=== PATIENT | female | born 1985 | race Caucasian/White ===

== ENCOUNTER 2020-07-30 06:50 | Emergency (ER) | payer OTHER, SELFPAY ==
[2020-07-30] VITALS (12 sets, daily range): BP systolic 111–139; BP diastolic 56–82; PULSE 59–79; RESP 16; TEMP 37; O2SAT 96–100; BMI 40.2
--- NOTE | 2020-07-30 | DI.US.S_ITS ---
PROCEDURE: US PELVIC COMPLETE INDICATIONS: RIGHT FLANK PAIN AND LOWER QUADRANT PAIN. ?OVARY VS APPENDIX TECHNIQUE: Real-time scanning was performed of the pelvic organs, with image documentation. Additional endovaginal scanning was necessary due to incomplete visualization of the adnexal and endometrial structures by transabdominal scanning. COMPARISON: [facility], CT, CT ABDOMEN PELVIS W CON, 07/30/2020, 9:23. [facility], US, US RENAL COMPLETE, 07/30/2020, 8:29. [facility], , PELVIC COMPLETE, 08/14/2013, 15:17. FINDINGS: Uterus: Surgically absent. Ovaries: Are within normal limits. Blood flow is seen in both ovaries. No mass or cystic lesion. Less than 12 ovarian follicles bilaterally. Right ovary measures 2.6 x 2.2 x 1.8 cm, volume of 5 cc. Left ovary measures 2.8 x 1.3 x 1.2 cm, volume of 2 cc. Other: No free fluid seen. IMPRESSION: 1. Normal sonographic appearance of the ovaries. No free fluid seen. 2. Post hysterectomy. Dictated by: Asif Osman M.D. on 07/30/2020 at 9:37 Approved by: Asif Osman M.D. on 07/30/2020 at 9:51
[2020-07-30 07:34] LABS: Prothrombin Time 11.8 SECONDS (10.1-12.7)
[2020-07-30 07:37] LABS: PTT Partial Thromboplastin Tim 38 SECONDS (26.4-36.2)
[2020-07-30 07:38] LABS: Add Manual Diff / Slide Review NO; Alanine Aminotransferase 19 IU/L (<35); Albumin 4.4 g/dL (3.5-5.0); Albumin Globulin Ratio 1.2 (1.0-2.8); Alkaline Phosphatase 81 U/L (38-126); Aspartate Aminotransferase 25 IU/L (14-36); BUN Creatinine Ratio 21.5 (6-22); Basophils Absolute Auto 100 /uL (0-100); Basophils Percent Auto 0.7 % (0-2); Bilirubin Total 0.5 mg/dL (0.2-1.3); Blood Urea Nitrogen 14 mg/dL (7-17); Calcium 9.3 mg/dL (8.4-10.2); Carbon Dioxide 27 mmol/L (22-32); Chloride 105 mmol/L (98-107); Eosinophils Absolute Auto 200 /uL (0-450); Eosinophils Percent Auto 3.1 % (2-4); Estimated Glomerular Filt Rate > 60.0 mL/min (>60); Globulin 3.6 g/dL (1.7-4.1); Glucose 120 mg/dL (70-100); HEMOLYSIS < 15 (0-50); Hematocrit 43.8 % (36-46); Hemoglobin 14.3 g/dL (12.0-16.0); Lipase 60 U/L (23-300); Lymphocytes Absolute Auto 1700 /uL (1100-4500); Lymphocytes Percent Auto 22.1 % (25-40); Mean Corpuscular HGB Conc 32.7 % (30-36); Mean Corpuscular Hemoglobin 28.8 PG (26-34); Mean Corpuscular Volume 88.1 fL (80-100); Monocytes Absolute Auto 500 /uL (0-900); Neutrophils Absolute Auto 5300 /uL (1500-7000); Neutrophils Percent Auto 67.1 % (50-75); Platelet Count 332 X10^3/uL (150-400); Potassium 3.7 mmol/L (3.4-5.1); Red Blood Cell Count 4.97 X10^6/uL (4.0-5.2); Red Cell Distribution Width 13.9 % (11.6-14.8); Sodium 137 mmol/L (137-145); White Blood Cell Count 7.8 X10^3/uL (4.5-11.0)
--- NOTE | 2020-07-30 08:03 | ED.ABDPAIN ---
HPI - Abdominal Pain General Chief Complaint: Abdominal Pain Stated Complaint: rt lower abd quad/lower back pain x2 days Time Seen by Provider: 07/30/20 08:02 Source: patient Mode of arrival: Ambulatory Limitations: no limitations History of Present Illness HPI narrative: This is a 34-year-old female comes to the emergency department with complaint of right lower and flank pain. Patient states she has been feeling unwell for the last several days with some chills, muscle aches. Patient denies any objective fevers. Patient states she developed nausea and started vomiting this morning she also developed abdominal pain about 6:00 a.m. in the morning in the right lower quadrant and flank region. Patient states that she had several episodes of diarrhea. She did drive some as mucousy. She denies any melena or hematochezia. She states she did not make it to the bathroom with 1 of them. She has not had any frequency, dysuria or urgency. She denies any vaginal discharge or bleeding. Patient has a history of hysterectomy with removal of cervix and bilateral fallopian tubes after having an ovarian cyst which ruptured and chronic endometriosis issues. She states both ovaries are present. She has also had a cholecystectomy. She also has a history of IBS. She denies any other major medical issues. Patient has allergy to penicillin. She states that with prior ovarian cyst she has not had similar symptoms, she also has not had similar pain with her IBS. She is accompanied by her ?best friend.? Related Data Home Medications Medication Instructions Recorded Confirmed CA/FE/FOLIC ACID/VIT A/VIT B 1 tab PO HS #0 12/23/10 (# VITAMIN) ibuprofen #0 07/21/16 Previous Rx's Medication Instructions Recorded hydrocodone-acetaminophen [[place]] 1 - 2 tab PO Q6H PRN #15 tab 09/10/16 ondansetron [Zofran ODT] 4 mg SUBLINGUAL Q6HP PRN #15 odt 09/10/16 ondansetron HCl [Zofran] 4 mg PO Q6H PRN #10 tab 07/30/20 tramadol [Ultram] 50 mg PO Q6H PRN #7 tab 07/30/20 Allergies Allergy/AdvReac Type Severity Reaction Status Date / Time Penicillins [PENICILLINS] Allergy Mild RASH Verified 07/30/20 07:12 leuprolide [LEUPROLIDE] Allergy Unknown Verified 07/30/20 07:12 Review of Systems Review of Systems ROS Unobtainable: All systems reviewed & are unremarkable except as noted in HPI and below Patient History Surgical History Status post laparoscopic cholecystectomy Status post laparoscopy (08/17/13) Status post laparoscopy Status post laparoscopy Social History Smoking Status: Never smoker Smoking Status: Never smoker alcohol intake frequency: holidays/special occasions only Substance Use Type: does not use Exam Narrative Exam Narrative: GENERAL: Alert and oriented x three, obese, well-appearing female in mild distress. HEENT: Head normocephalic, atraumatic, EOMI, pupils reactive, face symmetric, moist mucous membranes NECK: Supple, full range of motion CARDIOVASCULAR: Regular rate and rhythm without murmurs, rubs or gallops. RESPIRATORY: Breath sounds equal bilaterally, no wheezes rales or rhonchi. ABDOMEN: Soft, mild generalized tenderness, patient has right flank tenderness but less appreciable in the right lower quadrant but present. Normoactive bowel sounds all 4 quadrants. No guarding or rebound, rigidity, no mass : No left CVA tenderness EXTREMITIES: Normal range of motion, no clubbing or edema. Neurovascularly intact NEUROLOGICAL: Cranial nerves II through XII grossly intact. Moving all extremities SKIN: Warm, dry, no petechiae, no rashes or lesions. Initial Vital Signs Initial Vital Signs: Vital Signs Temperature 98.6 F 07/30/20 07:12 Pulse Rate 79 07/30/20 07:12 Respiratory Rate 16 07/30/20 07:12 Blood Pressure 139/82 07/30/20 07:12 Pulse Oximetry 99 07/30/20 07:12 Course Orders Ordered: ED Orders 07/30/20 07:00 Complete Blood Count AUTO DIFF Stat Comprehensive Metabolic Panel Stat Lipase Stat Partial Thromboplastin Time Stat Prothrombin Time INR Stat 07/30/20 08:10 renal complete Stat 07/30/20 09:21 CT abdomen pelvis w con Stat Discontinued Medications Sodium Chloride (Normal Saline 0.9%) 1,000 mls @ 1,000 mls/hr IV BOLUS ONE Stop: 07/30/20 09:09 Last Infusion: 07/30/20 11:02 Dose: 0 mls/hr Documented by: Admin: 07/30/20 08:24 Dose: 1,000 mls/hr Documented by: PAWEL Ketorolac Tromethamine (Ketorolac 60 Mg/2 Ml Vial) 15 mg IV NOW ONE Stop: 07/30/20 08:11 Last Admin: 07/30/20 08:24 Dose: 15 mg Documented by: PAWEL Morphine Sulfate (Morphine 4 Mg/Ml Inj) 4 mg IV NOW ONE Stop: 07/30/20 09:21 Last Admin: 07/30/20 09:25 Dose: 4 mg Documented by: PAWEL Ondansetron HCl (Ondansetron 4 Mg/2 Ml Inj) 4 mg IV NOW ONE Stop: 07/30/20 08:11 Last Admin: 07/30/20 08:24 Dose: 4 mg Documented by: PAWEL Reevaluation(s) Reevaluation #1: Patient prelim ultrasound they were unable to visualize appendix kidney appeared normal as well as normal right ovary. Patient did have significantly increased pain afterwards. She did improve with Toradol initially but after palpation with ultrasound she has much more uncomfortable. Plan to give morphine. We discussed watchful waiting versus imaging. I would recommend imaging at this time as she is quite tender with worsening symptoms even after pain medication and no other clear cause for her discomfort although patient's labs and vitals are reassuring. Patient is agreeable. Time: 09:25 Reevaluation #2: On recheck patient is more comfortable. Patient's CT does not show any signs of appendicitis are clear cause for her pain. We reviewed potential causes. Plan for watchful waiting Zofran and Ultram for pain and nausea and patient is to return if worsening symptoms. We did discuss there is potential for very early appendicitis although she does not have any inflammatory changes at this time. Patient is comfortable with this plan. Also left a face sheet for social work as she has a primary care but they do not currently take her State insurance and she would appreciate some assistance finding a provider. Time: 10:49 Vital Signs Vital signs: Vital Signs - 8 hr 07/30/20 07:12 07/30/20 07:16 07/30/20 07:30 Temperature 98.6 F Pulse Rate 79 73 69 Respiratory Rate 16 Blood Pressure 139/82 Pulse Oximetry 99 100 98 07/30/20 08:00 07/30/20 08:30 07/30/20 09:09 Temperature Pulse Rate 68 62 68 Respiratory Rate Blood Pressure 111/56 L Pulse Oximetry 96 99 98 07/30/20 09:10 07/30/20 09:36 07/30/20 10:00 Temperature Pulse Rate 71 73 65 Respiratory Rate Blood Pressure 111/59 L 114/70 Pulse Oximetry 98 96 98 07/30/20 10:30 07/30/20 10:59 07/30/20 11:00 Temperature Pulse Rate 63 59 L 66 Respiratory Rate Blood Pressure 113/62 Pulse Oximetry 98 97 97 MDM - Abdominal Pain Lab Data Attestation: I reviewed the patient's lab results. Result diagrams: 07/30/20 07:00 07/30/20 07:00 Labs: Lab Results 07/30/20 07/30/20 07/30/20 Range/Units 07:00 07:00 07:00 WBC 7.8 (4.5-11.0) X10^3/uL RBC 4.97 (4.0-5.2) X10^6/uL Hgb 14.3 (12.0-16.0) g/dL Hct 43.8 (36-46) % MCV 88.1 (80-100) fL MCH 28.8 (26-34) PG MCHC 32.7 (30-36) % RDW 13.9 (11.6-14.8) % Plt Count 332 (150-400) X10^3/uL Neut % (Auto) 67.1 (50-75) % Lymph % (Auto) 22.1 L (25-40) % Story % (Auto) 7.0 (3-14) % Eos % (Auto) 3.1 (2-4) % Baso % (Auto) 0.7 (0-2) % Neut # (Auto) 5300 (6667-9966) /uL Lymph # (Auto) 1700 (8762-1333) /uL Story # (Auto) 500 (0-900) /uL Eos # (Auto) 200 (0-450) /uL Baso # (Auto) 100 (0-100) /uL PT 11.8 (10.1-12.7) SECONDS INR 1.0 (0.9-1.3) APTT 38 H (26.4-36.2) SECONDS Sodium 137 (137-145) mmol/L Potassium 3.7 (3.4-5.1) mmol/L Chloride 105 (98-107) mmol/L Carbon Dioxide 27 (22-32) mmol/L BUN 14 (7-17) mg/dL Creatinine 0.65 (0.52-1.04) mg/dL Estimated GFR > 60.0 (>60) mL/min BUN/Creatinine Ratio 21.5 (6-22) Glucose 120 H (70-100) mg/dL Calcium 9.3 (8.4-10.2) mg/dL Total Bilirubin 0.5 (0.2-1.3) mg/dL AST 25 (14-36) IU/L ALT 19 (<35) IU/L Alkaline Phosphatase 81 (38-126) U/L Total Protein 8.0 (6.3-8.2) g/dL Albumin 4.4 (3.5-5.0) g/dL Globulin 3.6 (1.7-4.1) g/dL Albumin/Globulin Ratio 1.2 (1.0-2.8) Lipase 60 (23-300) U/L Point of care testing: Point of Care Testing Test Results Negative Urine Dip Bedside Urine Glucose Negative Bedside Urine Bilirubin - Negative Bedside Urine Ketone - Negative Urine Specific [place] 1.020 Bedside Urine Occult Blood - Negative Bedside Urine pH 6 Bedside Urine Protein - Negative Bedside Urine Urobilinogen - Negative Bedside Urine Nitrite - Negative Bedside Urine Leukocytes - Negative Esterase Imaging Data CT scan - abdomen/pelvis: Radiologist's Impression: [address] [id number] Scan ReportSigned Patient: Elma Ko JMR#: [id number]: 1985Acct:[id number]/Sex: 34 / FDate of Service: 07/30/20Loc: EDAccession Number: [id number] Procedure: CT abdomen pelvis w con Ordering Provider: Ana Lu D.O. PROCEDURE: CT ABDOMEN PELVIS W CON INDICATIONS: RLQ/flank pain, ? appy TECHNIQUE: After the administration of intravenous contrast, 5 mm thick sections acquired from the diaphragm to the symphysis. 5 mm coronal and sagittal reformats were acquired. For radiation dose reduction, the following was used: automated exposure control, adjustment of mA and/or kV according to patient size. COMPARISON: [facility], CT, ABDOMEN/PELVIS WITH CONTRAST, 09/08/2016, 10:53. FINDINGS: Image quality: Excellent. ABDOMEN: Lung bases: There is minimal dependent atelectasis. Heart size is normal. Solid organs: There is mild focal fatty infiltration in the anterior left hepatic lobe along the falciform ligament. The gallbladder appears within normal limits without calcified gallstones. Biliary system is non-dilated. Pancreas enhances normally. No peripancreatic fat stranding or fluid collections. No pancreatic duct dilatation. The spleen is normal in size. No adrenal nodules. Kidneys demonstrate no hydronephrosis. Peritoneum and bowel: Bowel loops demonstrate normal wall thickness and caliber. The appendix is normal in appearance. There is colonic diverticulosis without acute diverticulitis. No free fluid or air. Nodes and vessels: No retroperitoneal or mesenteric adenopathy by size criteria. Aorta and inferior vena cava are normal in size. Miscellaneous: No ventral hernias. PELVIS: Genitourinary: Bladder wall thickness is normal. The uterus is surgically absent. Ovaries appear within normal size limits. Miscellaneous: No inguinal hernias or adenopathy. Bones: No suspicious bony lesions. No vertebral body compression fractures. IMPRESSION: 1. No definite acute intra-abdominal abnormality. Specifically, no evidence of acute appendicitis or obstructive uropathy. Dictated by: Srikanth Gan M.D. on 07/30/2020 at 9:48 Approved by: Srikanth Gan M.D. on 07/30/2020 at 9:51 US - abdomen: Radiologist's Impression: [address] [id number] ReportSigned Patient: Elma Ko JMR#: [id number]: 1985Acct:[id number]/Sex: 34 / FDate of Service: 07/30/20Loc: EDAccession Number: [id number] Procedure: US pelvic complete Ordering Provider: Ana Lu D.O. PROCEDURE: US PELVIC COMPLETE INDICATIONS: RIGHT FLANK PAIN AND LOWER QUADRANT PAIN. ?OVARY VS APPENDIX TECHNIQUE: Real-time scanning was performed of the pelvic organs, with image documentation. Additional endovaginal scanning was necessary due to incomplete visualization of the adnexal and endometrial structures by transabdominal scanning. COMPARISON: [facility], CT, CT ABDOMEN PELVIS W CON, 07/30/2020, 9:23. [facility], , US RENAL COMPLETE, 07/30/2020, 8:29. [facility] US, PELVIC COMPLETE, 08/14/2013, 15:17. FINDINGS: Uterus: Surgically absent. Ovaries: Are within normal limits. Blood flow is seen in both ovaries. No mass or cystic lesion. Less than 12 ovarian follicles bilaterally. Right ovary measures 2.6 x 2.2 x 1.8 cm, volume of 5 cc. Left ovary measures 2.8 x 1.3 x 1.2 cm, volume of 2 cc. Other: No free fluid seen. IMPRESSION: 1. Normal sonographic appearance of the ovaries. No free fluid seen. 2. Post hysterectomy. Dictated by: Asif Osman M.D. on 07/30/2020 at 9:37 Approved by: Asif Osman M.D. on 07/30/2020 at 9:51 renal US: Radiologist's Impression: [address] [id number] ReportSigned Patient: Elma Ko JMR#: [id number]: 1985Acct:[id number]/Sex: 34 / FDate of Service: 07/30/20Loc: EDAccession Number: [id number] Procedure: US renal complete Ordering Provider: Ana Lu D.O. PROCEDURE: US RENAL COMPLETE INDICATIONS: RIGHT ABDOMEN/FLANK PAIN ?APPENDIX, STONE, OVARIAN CYST TECHNIQUE: Real-time scanning was performed of the kidneys and bladder, with image documentation. COMPARISON: [facility], US, US PELVIC COMPLETE, 07/30/2020, 8:37. [facility], CT, ABDOMEN/PELVIS WITH CONTRAST, 09/08/2016, 10:53. FINDINGS: Kidneys: Kidneys are normal in size. Right kidney measures 11 cm long; left kidney measures 11.3 cm long. Right renal cortical thickness is 1.4 cm; left renal cortical thickness is 2 cm. Renal cortical echotexture is normal. No hydronephrosis or nephrolithiasis. No suspicious solid mass lesions. Bladder: Pre-void bladder volume is 367 mL. Post-void residual is 0 mL. Pre-void images demonstrate no intraluminal masses or stones. On pre-void images, both ureteral jets are noted with color Doppler interrogation. (Of note, ureteral jets may not be detectable in up to 25% of cases due to insufficient differences in specific gravity between ureteral and bladder urine). Miscellaneous: No free pelvic fluid. No abnormality identified in the right lower quadrant. The appendix is not seen. No echogenic fat seen. IMPRESSION: 1. No hydronephrosis. 2. No abnormality identified in the right lower quadrant. The appendix is not identified. If clinically indicated consider further evaluation with CT abdomen and pelvis with IV contrast. Dictated by: Asif Osman M.D. on 07/30/2020 at 9:35 Approved by: Asif Osman M.D. on 07/30/2020 at 9:37 MDM Narrative Medical decision making narrative: 34-year-old female comes with complaint of abdominal pain with negative labs, test and point of care urinalysis. Renal ultrasound does not show obvious source of pain. Discussed with patient abdomen imaging was obtained no acute findings to describe her symptoms today. Appendix is visualized and does not appear to be infected. No renal obstructive changes. There is some mild fatty infiltrate in the left hepatic lobe which is not likely cause of her right lower quadrant pain. Discussed with patient may be related to her IBS history, possibility of endometriosis but less likely with vomiting and diarrhea. Possibility of very early appendicitis but with no acute changes, reassuring labs at this time would plan for watchful waiting and strict return precautions. Patient is aware of the fatty infiltrate need for follow-up. Discharge Plan Departure Patient Disposition: Home Clinical Impression: Abdominal pain Instructions: DI for Abdominal Pain-Adult Activity Restrictions/Additional Instructions: Follow-up with your physician this week for recheck if your symptoms are not resolving. There is no clear cause found with your labs or imaging today for abdominal pain, it may be related to your IBS. He continued to have persistent or frequent symptoms you may need colonoscopy in the future for further evaluation. There is also possibility that endometriosis may be related and this would not be seen on your imaging. May take pain medication 1 to 2 tablet every 6 hours as needed for pain. This medication can make you sleepy do not drive, perform hazardous activities or make any major decisions while taking it. It can cause constipation so make sure to take stool softener if you are having any hard stools or difficulty with bowel movements. You may take Zofran 1 tab every 6 hours as needed for nausea. Return to the ER for fevers greater 100.4 F, rapidly worsening back, abdominal or flank pain. Persistent vomiting, black or bloody stools, inability to urinate, lightheadedness or passing out, new chest pain or shortness of breath or other new or concerning symptoms. Prescriptions: New ondansetron HCl [Zofran] 4 mg tablet 4 mg PO Q6H PRN (Reason: nausea and vomiting) Qty: 10 RF: 0 tramadol [Ultram] 50 mg tablet 50 mg PO Q6H PRN (Reason: pain) Qty: 7 RF: 0 No Action CA/FE/FOLIC ACID/VIT A/VIT B (# VITAMIN) 1 tab PO HS Qty: 0 RF: 0 ibuprofen 200 MG tablet Qty: 0 RF: 0 hydrocodone-acetaminophen [[place]] 5 MG/325 MG tablet 1 - 2 tab PO Q6H PRNQty: 15 RF: 0 ondansetron [Zofran ODT] 4 MG tablet,disintegrating 4 mg Sublingual Q6HP PRNQty: 15 RF: 0
--- NOTE | 2020-07-30 08:10 | DI.US.S_ITS ---
PROCEDURE: US RENAL COMPLETE INDICATIONS: RIGHT ABDOMEN/FLANK PAIN ?APPENDIX, STONE, OVARIAN CYST TECHNIQUE: Real-time scanning was performed of the kidneys and bladder, with image documentation. COMPARISON: [facility], US, US PELVIC COMPLETE, 07/30/2020, 8:37. [facility], CT, ABDOMEN/PELVIS WITH CONTRAST, 09/08/2016, 10:53. FINDINGS: Kidneys: Kidneys are normal in size. Right kidney measures 11 cm long; left kidney measures 11.3 cm long. Right renal cortical thickness is 1.4 cm; left renal cortical thickness is 2 cm. Renal cortical echotexture is normal. No hydronephrosis or nephrolithiasis. No suspicious solid mass lesions. Bladder: Pre-void bladder volume is 367 mL. Post-void residual is 0 mL. Pre-void images demonstrate no intraluminal masses or stones. On pre-void images, both ureteral jets are noted with color Doppler interrogation. (Of note, ureteral jets may not be detectable in up to 25% of cases due to insufficient differences in specific gravity between ureteral and bladder urine). Miscellaneous: No free pelvic fluid. No abnormality identified in the right lower quadrant. The appendix is not seen. No echogenic fat seen. IMPRESSION: 1. No hydronephrosis. 2. No abnormality identified in the right lower quadrant. The appendix is not identified. If clinically indicated consider further evaluation with CT abdomen and pelvis with IV contrast. Dictated by: Asif Osman M.D. on 07/30/2020 at 9:35 Approved by: Asif Osman M.D. on 07/30/2020 at 9:37
[2020-07-30] MEDS: KETOROLAC 60 MG/2 ML VIAL 15 MG IV (08:24)
[2020-07-30] MEDS: ONDANSETRON 4 MG/2 ML INJ IV (08:24)
[2020-07-30] MEDS: SODIUM CHLORIDE 0.9% 1,000 ML 1000 ML IV (08:24)
--- NOTE | 2020-07-30 09:21 | DI.CT.S_ITS ---
PROCEDURE: CT ABDOMEN PELVIS W CON INDICATIONS: RLQ/flank pain, ? appy TECHNIQUE: After the administration of intravenous contrast, 5 mm thick sections acquired from the diaphragm to the symphysis. 5 mm coronal and sagittal reformats were acquired. For radiation dose reduction, the following was used: automated exposure control, adjustment of mA and/or kV according to patient size. COMPARISON: [facility], CT, ABDOMEN/PELVIS WITH CONTRAST, 09/08/2016, 10:53. FINDINGS: Image quality: Excellent. ABDOMEN: Lung bases: There is minimal dependent atelectasis. Heart size is normal. Solid organs: There is mild focal fatty infiltration in the anterior left hepatic lobe along the falciform ligament. The gallbladder appears within normal limits without calcified gallstones. Biliary system is non-dilated. Pancreas enhances normally. No peripancreatic fat stranding or fluid collections. No pancreatic duct dilatation. The spleen is normal in size. No adrenal nodules. Kidneys demonstrate no hydronephrosis. Peritoneum and bowel: Bowel loops demonstrate normal wall thickness and caliber. The appendix is normal in appearance. There is colonic diverticulosis without acute diverticulitis. No free fluid or air. Nodes and vessels: No retroperitoneal or mesenteric adenopathy by size criteria. Aorta and inferior vena cava are normal in size. Miscellaneous: No ventral hernias. PELVIS: Genitourinary: Bladder wall thickness is normal. The uterus is surgically absent. Ovaries appear within normal size limits. Miscellaneous: No inguinal hernias or adenopathy. Bones: No suspicious bony lesions. No vertebral body compression fractures. IMPRESSION: 1. No definite acute intra-abdominal abnormality. Specifically, no evidence of acute appendicitis or obstructive uropathy. Dictated by: Srikanth Gan M.D. on 07/30/2020 at 9:48 Approved by: Srikanth Gan M.D. on 07/30/2020 at 9:51
[2020-07-30] MEDS: MORPHINE 4 MG/ML INJ IV (09:25)
== END 2020-07-30 11:06 | disposition home or self-care (01) ==
PROVIDERS: Emergency Provider Emergency Medicine; Family Provider Family Medicine
DX: R10.31 Right lower quadrant pain (principal); R11.2 Nausea with vomiting, unspecified; R19.7 Diarrhea, unspecified; E66.9 Obesity, unspecified; Z68.41 Body mass index [BMI] 40.0-44.9, adult
CPT/HCPCS: 36415; 74177; 76770; 76830; 76856; 80053; 81003; 81025; 83690; 85025; 85610; 85730; 96361; 96374; 96375; 99284; J1885; J2270; J2405; Q9967

== ENCOUNTER 2020-11-07 06:19 | Emergency (ER) | payer OTHER, MEDICAID, SELFPAY ==
[2020-11-07] VITALS (7 sets, daily range): BP systolic 112–127; BP diastolic 63–81; PULSE 60–72; RESP 17–29; TEMP 36.6–36.7; O2SAT 96–100
[2020-11-07 06:43] LABS: Add Manual Diff / Slide Review NO; Basophils Absolute Auto 0 /uL (0-100); Basophils Percent Auto 0.6 % (0-2); Eosinophils Absolute Auto 200 /uL (0-450); Eosinophils Percent Auto 3.2 % (2-4); Lymphocytes Absolute Auto 1600 /uL (1100-4500); Lymphocytes Percent Auto 20.3 % (25-40); Mean Corpuscular HGB Conc 33.4 % (30-36); Mean Corpuscular Hemoglobin 29.3 PG (26-34); Mean Corpuscular Volume 87.8 fL (80-100); Monocytes Absolute Auto 600 /uL (0-900); Neutrophils Absolute Auto 5400 /uL (1500-7000); Neutrophils Percent Auto 68.9 % (50-75); Platelet Count 368 X10^3/uL (150-400); Red Blood Cell Count 4.79 X10^6/uL (4.0-5.2); Red Cell Distribution Width 13.4 % (11.6-14.8); White Blood Cell Count 7.9 X10^3/uL (4.5-11.0)
--- NOTE | 2020-11-07 06:47 | ED_ITS ---
HPI - General Adult <Ion Mckeon DO - Last Filed: 11/08/20 15:05> General Chief complaint: Syncope Stated complaint: Passed out, really dizzy Time Seen by Provider: 11/07/20 06:22 Source: patient and family Mode of arrival: Wheelchair Limitations: no limitations History of Present Illness HPI narrative: Patient is a 35-year-old female. History of bipolar disorder and also migraines who has had a headache for the past week. 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 When she came out from the patient's room she did not feel very well. She thought her headache was starting to get worse. She took an aspirin and Tylenol which did not help. She felt very sick and had some vision changes. She felt like her heart was beating fast. She had to sit down because of how she was feeling. She states she was on the phone with family when she states she did completely pass out. Apparently she did not fall out of the chair. She states that she thinks she was only out for a couple seconds and then return to normal very quickly afterwards. Here in the emergency department she states she feels very weak in her legs. The headache that she currently has is the 1 that she has been having for the past week and is consistent with her prior migraines. Related Data Home Medications Medication Instructions Recorded Confirmed CA/FE/FOLIC ACID/VIT A/VIT B 1 tab PO HS #0 12/23/10 10/20/20 (# VITAMIN) ibuprofen #0 07/21/16 10/20/20 bupropion HCl 150 mg 24 hr tablet, 150 mg PO QAM 10/20/20 10/20/20 extended release lamotrigine 25 mg tablet 25 mg PO ONCE 10/20/20 10/20/20 Previous Rx's Medication Instructions Recorded hydroxyzine HCl 25 mg tablet 25 mg PO TID PRN #20 tab 10/20/20 Allergies Allergy/AdvReac Type Severity Reaction Status Date / Time Penicillins [PENICILLINS] Allergy Mild RASH Verified 10/20/20 08:29 leuprolide [LEUPROLIDE] Allergy Unknown Verified 10/20/20 08:29 Review of Systems <Ion Mckeon DO - Last Filed: 11/08/20 15:05> Constitutional Constitutional: Denies chills, Reports fatigue, Denies fever(s), Reports headache(s) and Reports weakness Eyes Eyes: Reports blurry vision (This has resolved) ENT Ears, Nose, Mouth, and Throat: Denies vertigo, Reports dizziness, Reports headache(s), Reports disequilibrium and Denies sore throat Cardiovascular Cardiovascular: Denies chest pain, Reports syncope, Reports rapid heart rate (This has resolved) and Denies dyspnea Respiratory Respiratory: Denies dyspnea Gastrointestinal Gastrointestinal: Denies nausea and Denies vomiting Musculoskeletal Musculoskeletal: Reports system reviewed and no additional complaints, except as documented Integumentary/Breasts Skin/Breast: Reports system reviewed and no additional complaints, except as documented Neurologic Neurologic: Denies vertigo, Reports dizziness, Reports syncope, Reports head ache(s), Reports disequilibrium and Reports weakness Endocrine Endocrine: Reports system reviewed and no additional complaints, except as documented and Reports fatigue Hematologic/Lymphatic On Anticoagulants: No Allergic/Immunologic Allergic/Immunologic: Reports system reviewed and no additional complaints, except as documented Patient History <Ion Mckeon DO - Last Filed: 11/08/20 15:05> Medical History Bipolar disorder Migraine Surgical History Status post laparoscopic cholecystectomy Status post laparoscopy (08/17/13) Status post laparoscopy Status post laparoscopy Social History Smoking Status: Never smoker Smoking Status: Never smoker alcohol intake frequency: holidays/special occasions only Substance Use Type: marijuana Exam <Ion Mckeon DO - Last Filed: 11/08/20 15:05> Initial Vital Signs Initial Vital Signs: Vital Signs Temperature 98.0 F 11/07/20 06:34 Pulse Rate 71 11/07/20 06:34 Respiratory Rate 20 11/07/20 06:34 Blood Pressure 127/81 11/07/20 06:34 Pulse Oximetry 100 11/07/20 06:34 Const General: cooperative, comfortable and well developed Limitations: mental status not altered [facility] Head: normal to inspection and normocephalic Eyes General: appearance normal, both eyes and all related structures Resp Effort & Inspection: normal respiratory effort Auscultation: clear to auscultation bilaterally Cardio Rate: regular rate Rhythm: regular rhythm GI Inspection: non-distended Palpation: soft and No firm Skin Lesions: no lesions Rashes: no rashes Neuro General: patient alert, patient awake and patient oriented x3 Cranial Nerves: CN's II-XI intact bilaterally Cognition: normal cognition Speech: speech normal Gait: normal gait Motor: muscle tone normal throughout Extrem General: normal to inspection and capillary refill normal Psych Appearance: grossly normal and well kempt <Josee Mallory DO - Last Filed: 11/07/20 10:32> Initial Vital Signs Initial Vital Signs: Vital Signs Temperature 98.0 F 11/07/20 06:34 Pulse Rate 71 11/07/20 06:34 Respiratory Rate 20 11/07/20 06:34 Blood Pressure 127/81 11/07/20 06:34 Pulse Oximetry 100 11/07/20 06:34 Scores <Ion Mckeon DO - Last Filed: 11/08/20 15:05> GCS Ramos coma scale eye opening: Spontaneous Ramos coma scale verbal response: Orientated [place] coma scale motor response: Obey commands [place] coma scale total score: 15 Course <Ion Mckeon DO - Last Filed: 11/08/20 15:05> Orders Ordered: Discontinued Medications Diphenhydramine HCl (Diphenhydramine 50 Mg/Ml Vial) 25 mg IV NOW ONE Stop: 11/07/20 06:48 Last Admin: 11/07/20 06:58 Dose: 25 mg Documented by: SHANIA Sodium Chloride (Normal Saline 0.9%) 1,000 mls @ 1,000 mls/hr IV BOLUS ONE Stop: 11/07/20 07:32 Last Infusion: 11/07/20 08:53 Dose: 0 mls/hr Documented by: Admin: 11/07/20 06:58 Dose: 1,000 mls/hr Documented by: SHANIA Metoclopramide HCl (Metoclopramide 10 Mg/2 Ml Inj) 10 mg IV NOW ONE Stop: 11/07/20 06:48 Last Admin: 11/07/20 06:58 Dose: 10 mg Documented by: SHANIA Vital Signs Vital signs: Vital Signs - 8 hr 11/07/20 06:34 11/07/20 06:49 11/07/20 07:00 Temperature 98.0 F Pulse Rate 71 71 68 Respiratory Rate 20 Blood Pressure 127/81 126/65 Pulse Oximetry 100 96 99 11/07/20 07:30 11/07/20 07:41 11/07/20 08:00 Temperature Pulse Rate 72 65 60 Respiratory Rate 17 27 H 29 H Blood Pressure 112/63 126/65 Pulse Oximetry 99 98 98 11/07/20 08:30 Temperature 97.8 F Pulse Rate 72 Respiratory Rate 18 Blood Pressure 114/78 Pulse Oximetry 98 <Josee Mallory DO - Last Filed: 11/07/20 10:32> Orders Ordered: Discontinued Medications Diphenhydramine HCl (Diphenhydramine 50 Mg/Ml Vial) 25 mg IV NOW ONE Stop: 11/07/20 06:48 Last Admin: 11/07/20 06:58 Dose: 25 mg Documented by: SHANIA Sodium Chloride (Normal Saline 0.9%) 1,000 mls @ 1,000 mls/hr IV BOLUS ONE Stop: 11/07/20 07:32 Last Infusion: 11/07/20 08:53 Dose: 0 mls/hr Documented by: Admin: 11/07/20 06:58 Dose: 1,000 mls/hr Documented by: SHANIA Metoclopramide HCl (Metoclopramide 10 Mg/2 Ml Inj) 10 mg IV NOW ONE Stop: 11/07/20 06:48 Last Admin: 11/07/20 06:58 Dose: 10 mg Documented by: SHANIA Vital Signs Vital signs: Vital Signs - 8 hr 11/07/20 06:34 11/07/20 06:49 11/07/20 07:00 Temperature 98.0 F Pulse Rate 71 71 68 Respiratory Rate 20 Blood Pressure 127/81 126/65 Pulse Oximetry 100 96 99 11/07/20 07:30 11/07/20 07:41 11/07/20 08:00 Temperature Pulse Rate 72 65 60 Respiratory Rate 17 27 H 29 H Blood Pressure 112/63 126/65 Pulse Oximetry 99 98 98 11/07/20 08:30 Temperature 97.8 F Pulse Rate 72 Respiratory Rate 18 Blood Pressure 114/78 Pulse Oximetry 98 Medical Decision Making <Ion Mckeon DO - Last Filed: 11/08/20 15:05> Lab Data Lab results reviewed: Yes I reviewed the patient's lab results. Result diagrams: 11/07/20 06:30 11/07/20 06:30 Labs: Lab Results 11/07/20 11/07/20 Range/Units 06:30 06:30 WBC 7.9 (4.5-11.0) X10^3/uL RBC 4.79 (4.0-5.2) X10^6/uL Hgb 14.0 (12.0-16.0) g/dL Hct 42.0 (36-46) % MCV 87.8 (80-100) fL MCH 29.3 (26-34) PG MCHC 33.4 (30-36) % RDW 13.4 (11.6-14.8) % Plt Count 368 (150-400) X10^3/uL Neut % (Auto) 68.9 (50-75) % Lymph % (Auto) 20.3 L (25-40) % Routt % (Auto) 7.0 (3-14) % Eos % (Auto) 3.2 (2-4) % Baso % (Auto) 0.6 (0-2) % Neut # (Auto) 5400 (8053-8834) /uL Lymph # (Auto) 1600 (4250-3573) /uL Routt # (Auto) 600 (0-900) /uL Eos # (Auto) 200 (0-450) /uL Baso # (Auto) 0 (0-100) /uL Sodium 138 (137-145) mmol/L Potassium 3.8 (3.4-5.1) mmol/L Chloride 103 (98-107) mmol/L Carbon Dioxide 24 (22-32) mmol/L BUN 17 (7-17) mg/dL Creatinine 0.71 (0.52-1.04) mg/dL Estimated GFR > 60.0 (>60) mL/min BUN/Creatinine Ratio 23.9 H (6-22) Glucose 110 H (70-100) mg/dL Calcium 10.0 (8.4-10.2) mg/dL Point of Care Testing Test Results Negative Urine Dip Bedside Urine Glucose Negative Bedside Urine Bilirubin - Negative Bedside Urine Ketone - Negative Urine Specific [place] 1.030 Bedside Urine Occult Blood - Negative Bedside Urine pH 6.0 Bedside Urine Protein - Negative Bedside Urine Urobilinogen - Negative Bedside Urine Nitrite - Negative Bedside Urine Leukocytes - Negative Esterase Point of care testing: Point of Care Testing Test Results Negative Urine Dip Bedside Urine Glucose Negative Bedside Urine Bilirubin - Negative Bedside Urine Ketone - Negative Urine Specific [place] 1.030 Bedside Urine Occult Blood - Negative Bedside Urine pH 6.0 Bedside Urine Protein - Negative Bedside Urine Urobilinogen - Negative Bedside Urine Nitrite - Negative Bedside Urine Leukocytes - Negative Esterase ECG Data Attestation: I personally reviewed and interpreted this ECG as follows: Prior ECG tracings: not available for review Interpretation: Sinus rhythm Ventricular rate is 67 Normal axis Normal QRS Normal QTC Nonspecific ST T wave changes MDM Narrative Medical decision making narrative: Patient did appear to have a syncopal episode earlier today. She is also having headache which she states is 1 of her typical migraines. She states she would like treatment for her headache because of the discomfort. EKG is unremarkable. Labs are pending. Head CT is pending. Care turned over to Dr. Mallory a change of shift to follow up on labs and head CT. <Josee Mallory, - Last Filed: 11/07/20 10:32> Lab Data Labs: Lab Results 11/07/20 11/07/20 Range/Units 06:30 06:30 WBC 7.9 (4.5-11.0) X10^3/uL RBC 4.79 (4.0-5.2) X10^6/uL Hgb 14.0 (12.0-16.0) g/dL Hct 42.0 (36-46) % MCV 87.8 (80-100) fL MCH 29.3 (26-34) PG MCHC 33.4 (30-36) % RDW 13.4 (11.6-14.8) % Plt Count 368 (150-400) X10^3/uL Neut % (Auto) 68.9 (50-75) % Lymph % (Auto) 20.3 L (25-40) % Rout[place] % (Auto) 7.0 (3-14) % Eos % (Auto) 3.2 (2-4) % Baso % (Auto) 0.6 (0-2) % Neut # (Auto) 5400 (9971-3493) /uL Lymph # (Auto) 1600 (8470-0010) /uL [place] # (Auto) 600 (0-900) /uL Eos # (Auto) 200 (0-450) /uL Baso # (Auto) 0 (0-100) /uL Sodium 138 (137-145) mmol/L Potassium 3.8 (3.4-5.1) mmol/L Chloride 103 (98-107) mmol/L Carbon Dioxide 24 (22-32) mmol/L BUN 17 (7-17) mg/dL Creatinine 0.71 (0.52-1.04) mg/dL Estimated GFR > 60.0 (>60) mL/min BUN/Creatinine Ratio 23.9 H (6-22) Glucose 110 H (70-100) mg/dL Calcium 10.0 (8.4-10.2) mg/dL Point of Care Testing Test Results Negative Urine Dip Bedside Urine Glucose Negative Bedside Urine Bilirubin - Negative Bedside Urine Ketone - Negative Urine Specific [place] 1.030 Bedside Urine Occult Blood - Negative Bedside Urine pH 6.0 Bedside Urine Protein - Negative Bedside Urine Urobilinogen - Negative Bedside Urine Nitrite - Negative Bedside Urine Leukocytes - Negative Esterase Point of care testing: Point of Care Testing Test Results Negative Urine Dip Bedside Urine Glucose Negative Bedside Urine Bilirubin - Negative Bedside Urine Ketone - Negative Urine Specific [place] 1.030 Bedside Urine Occult Blood - Negative Bedside Urine pH 6.0 Bedside Urine Protein - Negative Bedside Urine Urobilinogen - Negative Bedside Urine Nitrite - Negative Bedside Urine Leukocytes - Negative Esterase Imaging Data CT scan - head: Radiologist's Impression: PROCEDURE: CT HEAD/BRAIN WO CON INDICATIONS: Passed out with headache TECHNIQUE: Noncontrast 4.5 mm thick angled axial sections acquired from the foramen magnum to the vertex, with coronal and sagittal reformats. For radiation dose reduction, the following was used: automated exposure control, adjustment of mA and/or kV according to patient size. COMPARISON: None. FINDINGS: Image quality: Excellent. CSF spaces: Basal cisterns are patent. No extra-axial fluid collections. Ventricles are normal in size and shape. Brain: No midline shift. No intracranial masses or hemorrhage. Lerner-white matter interface is normal. Skull and face: Calvarium and visualized facial bones are intact, without suspicious lesions. Sinuses: Visualized sinuses and mastoids are clear. IMPRESSION: No acute intracranial disease process. Dictated by: Zohra Valdivia MD, PhD on 11/07/2020 at 7:48 MDM Narrative Medical decision making narrative: Received sign-out from shift supervisor melting provider seen evaluated patient myself. She says she is feeling a little groggy likely from the Benadryl and Reglan of overall feeling better. Head CT is negative. [address] strength equal no nystagmus. Ambulating overall feeling much better. Likely vasovagal syncope migraine has also improved. Discharge Plan Departure Patient Disposition: Home Clinical Impression: Vasovagal syncope Instructions: DI for Syncope in Adults (Fainting) Activity Restrictions/Additional Instructions: *You have been diagnosed with vasovagal syncope *What to do: At this time your body likely had a natural reaction to low blood sugar or low blood pressure. Blood work and CT scan are overall reassuring. Recommend go home and rest continue to eat regular meals and drink fluids *Continue to take medications as directed *Follow up with your primary care provider in 2-3 days *Return to ER if you should have recurrent episode of passing out, chest pain palpitations, weakness or any new, worsening or concerning symptoms Prescriptions: No Action CA/FE/FOLIC ACID/VIT A/VIT B (# VITAMIN) 1 tab PO HS Qty: 0 RF: 0 ibuprofen 200 MG tablet Qty: 0 RF: 0 hydroxyzine HCl 25 mg tablet 25 mg PO TID PRN (Reason: nausea and vomiting) Qty: 20 RF: 0 lamotrigine 25 mg tablet 25 mg PO ONCE RF: 0 bupropion HCl 150 mg tablet extended release 24 hr 150 mg PO QAM RF: 0 Referrals: Skyla Moore DO [Primary Care Provider] -
[2020-11-07 06:53] LABS: BUN Creatinine Ratio 23.9 (6-22); Blood Urea Nitrogen 17 mg/dL (7-17); Carbon Dioxide 24 mmol/L (22-32); Chloride 103 mmol/L (98-107); Estimated Glomerular Filt Rate > 60.0 mL/min (>60); Glucose 110 mg/dL (70-100); HEMOLYSIS < 15 (0-50); Potassium 3.8 mmol/L (3.4-5.1); Sodium 138 mmol/L (137-145)
[2020-11-07] MEDS: METOCLOPRAMIDE 10 MG/2 ML INJ IV (06:58)
[2020-11-07] MEDS: diphenhydrAMINE 50 MG/ML VIAL 25 MG IV (06:58)
[2020-11-07] MEDS: SODIUM CHLORIDE 0.9% 1,000 ML 1000 ML IV (06:58)
== END 2020-11-07 09:01 | disposition home or self-care (01) ==
PROVIDERS: Emergency Provider Emergency Medicine; Family Provider Family Medicine; PCP Family Medicine; Referring Provider Emergency Medicine
DX: R55 Syncope and collapse (principal); R51.9 Headache, unspecified
CPT/HCPCS: 36415; 70450; 80048; 81003; 81025; 85025; 93005; 93010; 96361; 96374; 96375; 99284; J1200; J2765